=== PATIENT | male | born 1955 | race Caucasian/White ===

== ENCOUNTER 2017-10-12 11:39 | Emergency (ER) | payer MEDICAID ==
[2017-10-12 12:33] VITALS: BP 140/80
--- NOTE | 2017-10-12 13:13 | UC ---
Shoulder Pain HPI - HPI Summary HPI Summary: 62 yo male states he had the acute onset of left shoulder /scapular and arm pain that started this AM The pain woke him up The pain is rated as 10/10 HE DENIES CP/SOB/N or V/DIAPHORESIS the pain is no changed by position or movement He states he is allergic to ASA He took tramadol without relief - History of Current Complaint Chief Complaint: UCUpperExtremity Stated Complaint: SHOULDER AND BACK PAIN Time Seen by Provider: 10/12/17 12:30 Hx Obtained From: Patient Onset/Duration: Sudden Onset, Lasting Hours Timing: Constant Severity Initially: Severe Severity Currently: Severe Pain Intensity: 10 Pain Scale Used: 0-10 Numeric Character: Unable to Describe Aggravating Factor(s): Nothing Alleviating Factor(s): Nothing Associated Signs And Symptoms: Positive: Negative Related History: Dominant Hand Right - Allergies/Home Medications Allergies/Adverse Reactions: Allergies Allergy/AdvReac Type Severity Reaction Status Date / Time aspirin Allergy See Comment Verified 10/12/17 12:09 PMH/Surg Hx/FS Hx/Imm Hx Previously Healthy: Yes Cardiovascular History: Other Other Cardiovascular History: states he had Rheumatic heart disease as a child Psychological History: Other Other Psychological History: he has been admitted for acute ychosis i Other History Of: Negative For: Anticoagulant Therapy - Surgical History Surgical History: Yes Surgery Procedure, Year, and Place: eye surgery - Family History Known Family History: Positive: Hypertension - Social History Alcohol Use: Daily Alcohol Amount: beer Substance Use Type: None Smoking Status (MU): Light Every Day Tobacco Smoker Amount Used/How Often: 1/2 PPD Household Exposure Type: Cigarettes - Immunization History Most Recent Influenza Vaccination: unknown Most Recent Tetanus Shot: unknown Most Recent Pneumonia Vaccination: unknown Review of Systems Constitutional: Negative Skin: Negative Eyes: Negative ENT: Negative Respiratory: Negative Cardiovascular: Negative Gastrointestinal: Negative Genitourinary: Negative Motor: Negative Neurovascular: Negative Musculoskeletal: Other: - left shoulder /scapular and elbow pain Neurological: Negative Psychological: Negative Is Patient Immunocompromised?: No All Other Systems Reviewed And Are Negative: Yes Physical Exam Triage Information Reviewed: Yes Appearance: Thin Vital Signs: Initial Vital Signs Temp 96.7 F 10/12/17 12:03 Pulse 74 10/12/17 12:03 Resp 16 10/12/17 12:03 BP 147/92 10/12/17 12:03 Pulse Ox 100 10/12/17 12:03 Eyes: Positive: Conjunctiva Clear ENT: Negative: Nasal congestion, Nasal drainage, Trismus, Muffled voice, Hoarse voice Dental Exam: Other - poor dentition Neck: Positive: Supple Respiratory: Positive: Lungs clear, Normal breath sounds, No respiratory distress, No accessory muscle use Cardiovascular: Positive: RRR, No Murmur Abdomen Description: Positive: Nontender. Negative: Bruit, CVA Tenderness (R), CVA Tenderness (L) Musculoskeletal: Positive: ROM Intact, No Edema, Other: - both shoulder and elbow are not tender Neurological Exam: Normal Neurological: Positive: Alert Psychological Exam: Normal Skin Exam: Normal Diagnostics - EKG Cardiac Rate: NL Cardiac Rhythm: Sinus: Normal Ectopy: None ST Segment: Normal - no significant ST elevations/compared with old EKG Shoulder Course/Dx - Course Course Of Treatment: beause he has full ROM of shoulder and elbow and has no tenderness to palpatio I explained to him I has hesitant to call this musculosketal pain. I stated that the most prudent thing to do would be to send him to the ER. I told him we could give him IV morphine and send him by EMS. He refuses stating he will go by POV (frientd driving). He is aware that his terrazas could be due a serious cause (ie referred cardiac pain). - Differential Dx/Diagnosis Provider Diagnoses: left arm pain of uncertain cause Discharge - Sign-Out/Discharge Documenting (check all that apply): Discharge/Admit/Transfer - Discharge Plan Condition: Guarded Disposition: TRANS HIGHER LVL OF CARE FAC Referrals: Josesito Leroy MD [Primary Care Provider] - Additional Instructions: I am unsure of the cause of your left arm pain I suggest you go to the ER for evaluation to make sure it is not referred chest pain from your heart We are happy to start and IV here and give you pain meds and send you to the ER by ambulance should you desire This would be more prudent than going by car - Billing Disposition and Condition Condition: GUARDED Disposition: EMTALA
== END 2017-10-12 12:47 | disposition short-term general hospital (02) ==
LOC: UCEAST 11:39
DX: Z88.6 Allergy status to analgesic agent (principal); F17.210 Nicotine dependence, cigarettes, uncomplicated
CPT/HCPCS: 93005; 99212; G0463

== ENCOUNTER 2017-10-12 13:21 | Emergency (ER) | payer MEDICAID ==
[2017-10-12] MEDS ORDERED: Acetaminophen TAB* 325 MG PO ONE (13:56)
[2017-10-12] MEDS ORDERED: Ketorolac INJ* 60 MG/2 ML VIAL IM ONE (13:59)
[2017-10-12 14:18] LABS: ABS Basophils 0 10^3/ul (0-0.2); ABS Eosinophils 0 10^3/ul (0-0.6); ABS Monocytes 0.7 10^3/ul (0-0.8); ABS Neutrophils 3.4 10^3/ul (1.5-7.7); ABS Nucleated RBC 0 10^3/ul; Hematocrit 44 % (42-52); Hemoglobin 14.7 g/dl (14.0-18.0); Lymphocyte % 18.3 % (25-47); Mean Corpuscular HGB Conc 34 g/dl (31-36); Mean Corpuscular Hemoglobin 32 pg (27-31); Mean Corpuscular Volume 94 fL (80-94); Mean Platelet Volume 8.3 um3 (7.4-10.4); Nucleated Red Blood Cells % 0; Platelet Count 219 10^3/ul (150-450); Red Blood Count 4.65 10^6/ul (4.0-5.4); Red Cell Distribution Width 14 % (10.5-15); White Blood Count 5.2 10^3/ul (3.5-10.8)
[2017-10-12 14:31] LABS: EGFR Non-African American 86.1 (>60)
--- NOTE | 2017-10-12 14:34 | RAD ---
INDICATION: Chest pain COMPARISON: June 21, 2015 TECHNIQUE: An AP portable view obtained at 1417 hours is submitted. FINDINGS: Bones/Soft Tissues: There are no acute bony findings. Cardiomediastinal: The cardiomediastinal silhouette is normal. Lungs: There are no infiltrates. Pleura: There are no pleural effusions. Other: None IMPRESSION: NO ACTIVE DISEASE
[2017-10-12 15:06] VITALS: BP 145/86
--- NOTE | 2017-10-12 19:00 | ED ---
Natanael Hurst Stephanie, scribed for Joni Rea MD on 10/12/17 at 1404 . Upper Extremity Pain - HPI Summary HPI Summary: The pt is a 62 y/o M presenting to the ED with c/o L UE pain that began this morning after awaking. The pt reports he was sleeping on his L UE and when he woke up he had L UE pain. He denies CP and SOB. - History of Current Complaint Chief Complaint: EDExtremityUpper Stated Complaint: LT ARM PAIN Time Seen by Provider: 10/12/17 13:44 Hx Obtained From: Patient Mechanism Of Injury: Other - sleeping on L UE Onset/Duration: Started Hours Ago, Still Present Timing: Constant Severity Currently: Mild Pain Location: Arm - L Aggravating Factor(s): Other - position Alleviating Factor(s): Nothing Associated Signs & Symptoms: Negative: Chest Pain, SOB - Allergies/Home Medications Allergies/Adverse Reactions: Allergies Allergy/AdvReac Type Severity Reaction Status Date / Time aspirin Allergy See Comment Verified 10/12/17 13:43 Home Medications: Home Medications Metoprolol Tartrate TAB* [Lopressor TAB*] 50 mg PO BID 10/12/17 [History Confirmed 10/12/17] PMH/Surg Hx/FS Hx/Imm Hx Endocrine/Hematology History: Denies: Hx Anticoagulant Therapy, Hx Blood Disorders, Hx Blood Transfusions, Hx Bone Marrow Disease, Hx Diabetes, Hx Systemic Lupus Erythematosus, Hx Sickle Cell Disease, Hx Thyroid Disease, Hx Anemia, Hx Unexplained Bleeding, Other Endocrine/Hematological Disorders Cardiovascular History: Reports: Hx Hypertension Denies: Hx Aneurysm, Hx Angina, Hx Angioplasty, Hx Atrial Fibrillation, Hx Auto Implanted Cardiovert Defib, Hx Cardiac Arrest, Hx Cardiomegaly, Hx Congenital Heart Disease, Hx Congestive Heart Failure, Hx Coronary Artery Disease, Hx Deep Vein Thrombosis, Hx Embolism, Hx Hypercholesterolemia, Hx Hypotension, Hx Myocardial Infarction, Hx Pacemaker/ICD, Hx Peripheral Vascular Disease, Hx Rheumatic Fever, Hx Syncope, Hx Valvular Heart Disease, Other Cardiovascular Problems/Disorders Respiratory History: Denies: Hx Asthma, Hx Bronchopulmonary Dysplasia, Hx Chronic Bronchitis, Hx Chronic Obstructive Pulmonary Disease (COPD), Hx Cystic Fibrosis, Hx Lung Cancer , Hx Pleural Effusion, Hx Pneumonia, Hx Pulmonary Edema, Hx Pulmonary Embolism, Hx Seasonal Allergies, Hx Sleep Apnea, Other Respiratory Problems/Disorders GI History: Reports: Other GI Disorders - Constipaiton per ER nurse report Denies: Hx Cirrhosis, Hx Crohn's Disease, Hx Diverticulosis, Hx Gall Bladder Disease, Hx Gastroesophageal Reflux Disease, Hx Gastrointestinal Bleed, Hx Hiatal Hernia, Hx Irritable Bowel, Hx Jaundice, Hx Obstructive Bowel, Hx Ileostomy, Hx Pyloric Stenosis, Hx Ulcer, Hx Urosepsis History: Denies: Hx Acute Renal Failure, Hx Benign Prostatic Hyperplasia, Hx Chronic Renal Failure, Hx Dialysis, Hx Kidney Infection, Hx Kidney Stones, Hx Renal Disease, Other Problems/Disorders Musculoskeletal History: Reports: Other Musculoskeletal History - chronic pain Sensory History: Denies: Hx Cataracts, Hx Contacts or Glasses, Hx Eye Injury, Hx Eye Prosthesis, Hx Glaucoma, Hx Legally Blind, Hx Macular Degeneration, Hx Vision Problem, Hx Deafness, Hx Hearing Aid, Hx Hearing Problem, Other Sensory Impairments Opthamlomology History: Denies: Hx Cataracts, Hx Contacts or Glasses, Hx Eye Injury, Hx Eye Prosthesis, Hx Glaucoma, Hx Legally Blind, Hx Macular Degeneration, Hx Vision Problem, Other Sensory Impairments Neurological History: Reports: Hx Seizures - pt noted to have seizure in ED Denies: Hx CVA, Hx Dementia, Hx Developmental Delay, Hx Headaches, Hx Migraine, Hx Nerve Disease, Hx Peripheral Neuropathy, Hx Spinal Cord Injury, Hx Transient Ischemic Attacks (TIA), Other Neuro Impairments/Disorders Psychiatric History: Reports: Hx Anxiety, Hx Depression, Other Psychiatric Issues/Disorders - mood disorder Denies: Hx Eating Disorder, Hx of Violent Episodes Against Others - Surgical History Surgery Procedure, Year, and Place: eye surgery Infectious Disease History: No Infectious Disease History: Denies: Traveled Outside the [place] in Last 30 Days - Family History Known Family History: Negative: Renal Disease - Social History Occupation: Unemployed Lives: Dormitory/Roommates Alcohol Use: Daily Alcohol Amount: beer Hx Substance Use: No Substance Use Type: Reports: None Hx Tobacco Use: Yes Smoking Status (MU): Light Every Day Tobacco Smoker Amount Used/How Often: 1/2 PPD Review of Systems Negative: Fever Negative: Chest Pain Negative: Shortness Of Breath Positive: Other - L UE pain Negative: Slurred Speech All Other Systems Reviewed And Are Negative: Yes Physical Exam - Summary Physical Exam Summary: VITAL SIGNS: Reviewed. GENERAL: Patient is a well-developed and nourished MALE who is lying comfortable in the stretcher. Patient is not in any acute respiratory distress. HEAD AND FACE: No signs of trauma. No ecchymosis, hematomas or skull depressions. No sinus tenderness. EYES: PERRLA, EOMI x 2, No injected conjunctiva, no nystagmus. EARS: Hearing grossly intact. Ear canals and tympanic membranes are within normal limits. MOUTH: Oropharynx within normal limits. NECK: Supple, trachea is midline, no adenopathy, no JVD, no carotid bruit, no c- spine tenderness, neck with full ROM. CHEST: Symmetric, no tenderness at palpation LUNGS: Clear to auscultation bilaterally. No wheezing or crackles. CVS: Regular rate and rhythm, S1 and S2 present, no murmurs or gallops appreciated. ABDOMEN: Soft, non-tender. No signs of distention. No rebound no guarding, and no masses palpated. Bowel sounds are normal. EXTREMITIES: FROM in all major joints, no edema, no cyanosis or clubbing. NEURO: Alert and oriented x 3. No acute neurological deficits. Speech is normal and follows commands. SKIN: Dry and warm Triage Information Reviewed: Yes Vital Signs On Initial Exam: Initial Vitals Temp Pulse Resp BP Pulse Ox 97.6 F 66 18 149/103 98 10/12/17 13:37 10/12/17 13:37 10/12/17 13:37 10/12/17 13:37 10/12/17 13:37 Vital Signs Reviewed: Yes Diagnostics - Vital Signs Vital Signs Temp Pulse Resp BP Pulse Ox 10/12/17 13:37 97.6 F 66 18 149/103 98 - Laboratory Lab Results: Lab Results 10/12/17 10/12/17 Range/Units 14:03 14:03 WBC 5.2 (3.5-10.8) 10^3/ul RBC 4.65 (4.0-5.4) 10^6/ul Hgb 14.7 (14.0-18.0) g/dl Hct 44 (42-52) % MCV 94 (80-94) fL MCH 32 H (27-31) pg MCHC 34 (31-36) g/dl RDW 14 (10.5-15) % Plt Count 219 (150-450) 10^3/ul MPV 8.3 (7.4-10.4) um3 Neut % (Auto) 65.5 (38-83) % Lymph % (Auto) 18.3 L (25-47) % Candler % (Auto) 14.3 H (0-7) % Eos % (Auto) 1.0 (0-6) % Baso % (Auto) 0.9 (0-2) % Absolute Neuts (auto) 3.4 (1.5-7.7) 10^3/ul Absolute Lymphs (auto) 1.0 (1.0-4.8) 10^3/ul Absolute Monos (auto) 0.7 (0-0.8) 10^3/ul Absolute Eos (auto) 0 (0-0.6) 10^3/ul Absolute Basos (auto) 0 (0-0.2) 10^3/ul Absolute Nucleated RBC 0 10^3/ul Nucleated RBC % 0 Sodium 136 L (139-145) mmol/L Potassium Pending Chloride 104 (101-111) mmol/L Carbon Dioxide 25 (22-32) mmol/L Anion Gap Pending BUN 11 (6-24) mg/dL Creatinine 0.90 (0.67-1.17) mg/dL Est GFR ( Amer) 110.7 (>60) Est GFR (Non-Af Amer) 86.1 (>60) BUN/Creatinine Ratio 12.2 (8-20) Glucose 101 H (70-100) mg/dL Calcium 8.9 (8.6-10.3) mg/dL Total Bilirubin 0.60 (0.2-1.0) mg/dL AST Pending ALT 57 H (7-52) U/L Alkaline Phosphatase 52 (34-104) U/L Total Creatine Kinase 89 (10-223) U/L CK-MB (CK-2) 1.8 (0.6-6.3) ng/mL Troponin I 0.00 (<0.04) ng/mL Total Protein 7.3 (6.4-8.9) g/dL Albumin 4.3 (3.2-5.2) g/dL Globulin 3.0 (2-4) g/dL Albumin/Globulin Ratio 1.4 (1-3) Result Diagrams: 10/12/17 14:03 10/12/17 14:03 Lab Statement: Any lab studies that have been ordered have been reviewed, and results considered in the medical decision making process. - Radiology CXR Xray Interpretation: No Acute Changes Radiology Interpretation Completed By: Radiologist - NO ACTIVE DISEASE. ED physician has reviewed this report. - EKG 14:07 Cardiac Rate: NL EKG Rhythm: Sinus Rhythm - [address] Segment: Normal Ectopy: None EKG Interpretation: No ST elevations, Normal axis EKG Comparison: No Significant Change - Similar to 06/21/15 Course/Dx - Course Assessment/Plan: This patient is a 62-year-old male who presents to the emergency department with a chief complaint of having left arm pain. The patient was seen in the urgent care and they decided to send the patient for a cardiac workup. Patient reports that he is left frontoparietal left upper extremity last night and when he woke up he developed the pain. He denies any chest pain, shortness of breath or palpitations. EKG is a normal sinus rhythm without any ST elevations. EKG is similar to a previous EKG done in the emergency department. Blood test results without any significant abnormality except for sodium of 136 and AST of 57. Troponin is 0.00 and CK-MB is 1.8. Chest x-ray impression: No active disease. During my physical exam I believe that the patient has an elbow tendinitis. Patient was given Toradol for the pain and his symptoms have improved. Therefore I do not believe that the patient has an acute coronary syndrome. Also the left upper extremity exam has good pulses and good capillary refill. The patient is neurovascularly intact. There is no rashes to think that the patient has cellulitis or shingles. I discussed all the findings and test results with the patient. Patient was instructed to return to the emergency room immediately if any of the symptoms return or worsens. Plan of care was discussed with the patient and understands and agrees. All questions were answered at patient satisfaction. There were no further complaints or concerns. Lung exam before discharge: CTA B/L. Good air exchange. No wheezing or crackles heard. CVS: S1 and S2 present. No murmurs appreciated. Patient is alert and oriented x 3. Patient is hemodynamically stable. Patient will be discharged home with follow up PCP in the next 2-3 days - Diagnoses Provider Diagnoses: Left elbow tendinitis, Left upper limb pain Discharge - Sign-Out/Discharge Documenting (check all that apply): Discharge/Admit/Transfer - Discharge - Discharge Plan Condition: Stable Disposition: HOME Prescriptions: Naproxen [Naproxen 500 mg tab] 500 mg PO BID #20 tablet Patient Education Materials: Tendinitis (ED) Referrals: Josesito Leroy MD [Primary Care Provider] - 3 Days Additional Instructions: Return to the ED for new or worsening symptoms. The documentation as recorded by the Natanael jackson Stephanie accurately reflects the service I personally performed and the decisions made by Álvaro dalal Walter, MD.
== END 2017-10-12 15:05 | disposition home or self-care (01) ==
LOC: ED 13:21
DX: M77.9 Enthesopathy, unspecified (principal); M79.602 Pain in left arm; F17.200 Nicotine dependence, unspecified, uncomplicated; Z88.6 Allergy status to analgesic agent
CPT/HCPCS: 36415; 71045; 80053; 82550; 82553; 84484; 85025; 93005; 96372; 99282; J1885

== ENCOUNTER 2019-05-29 14:40 | Emergency (ER) | payer OTHER ==
[2019-05-29] MEDS ORDERED: Labetalol IV* 5 MG/ML 20 ML VIAL IV PUSH ONE (15:17)
--- NOTE | 2019-05-29 15:19 | ED ---
Hypertension - HPI Summary HPI Summary: This pt is a 63 Y/O M presenting to [facility] accompanied by his with a CC of HTN that has been present since 05/26/2019 without any relief. He states that he started new blood pressure medications in April and has been taking them every day. He states that he has been feeling weird and lightheaded since the onset. He also states tingling and numbness in his extremities. He states that he has pain bilaterally in his lower extremities. He denies any recent fever, chills, N/V, and headaches. He states that he has no aggravating or alleviating factors. He has a PMHx of HTN and rheumatic fever. He states that he has a SHx of smoking cigarettes and states that he has a beer once a night. - History of Current Complaint Chief Complaint: EDHypertension Stated Complaint: HIGH BLOOD PRESSURE Time Seen by Provider: 05/29/19 15:01 Hx Obtained From: Patient Onset/Duration: Started Days Ago - 3, Still Present Timing: Constant Aggravating Factor(s): Nothing Alleviating Factor(s): Nothing Associated Signs & Symptoms: Negative - headaches, fevers, chills, N/V, Numbness , Tingling - Allergies/Home Medications Allergies/Adverse Reactions: Allergies Allergy/AdvReac Type Severity Reaction Status Date / Time aspirin Allergy See Comment Verified 05/29/19 14:58 PMH/Surg Hx/FS Hx/Imm Hx Previously Healthy: Yes Endocrine/Hematology History: Denies: Hx Anticoagulant Therapy, Hx Blood Disorders, Hx Blood Transfusions, Hx Bone Marrow Disease, Hx Diabetes, Hx Systemic Lupus Erythematosus, Hx Sickle Cell Disease, Hx Thyroid Disease, Hx Anemia, Hx Unexplained Bleeding, Other Endocrine/Hematological Disorders Cardiovascular History: Reports: Hx Hypertension Denies: Hx Aneurysm, Hx Angina, Hx Angioplasty, Hx Atrial Fibrillation, Hx Auto Implanted Cardiovert Defib, Hx Cardiac Arrest, Hx Cardiomegaly, Hx Congenital Heart Disease, Hx Congestive Heart Failure, Hx Coronary Artery Disease, Hx Deep Vein Thrombosis, Hx Embolism, Hx Hypercholesterolemia, Hx Hypotension, Hx Myocardial Infarction, Hx Pacemaker/ICD, Hx Peripheral Vascular Disease, Hx Rheumatic Fever, Hx Syncope, Hx Valvular Heart Disease, Other Cardiovascular Problems/Disorders Respiratory History: Denies: Hx Asthma, Hx Bronchopulmonary Dysplasia, Hx Chronic Bronchitis, Hx Chronic Obstructive Pulmonary Disease (COPD), Hx Cystic Fibrosis, Hx Lung Cancer , Hx Pleural Effusion, Hx Pneumonia, Hx Pulmonary Edema, Hx Pulmonary Embolism, Hx Seasonal Allergies, Hx Sleep Apnea, Other Respiratory Problems/Disorders GI History: Reports: Other GI Disorders - Constipaiton per ER nurse report Denies: Hx Cirrhosis, Hx Crohn's Disease, Hx Diverticulosis, Hx Gall Bladder Disease, Hx Gastroesophageal Reflux Disease, Hx Gastrointestinal Bleed, Hx Hiatal Hernia, Hx Irritable Bowel, Hx Jaundice, Hx Obstructive Bowel, Hx Ileostomy, Hx Pyloric Stenosis, Hx Ulcer, Hx Urosepsis History: Denies: Hx Acute Renal Failure, Hx Benign Prostatic Hyperplasia, Hx Chronic Renal Failure, Hx Dialysis, Hx Kidney Infection, Hx Kidney Stones, Hx Renal Disease, Other Problems/Disorders Musculoskeletal History: Reports: Other Musculoskeletal History - chronic pain Sensory History: Denies: Hx Cataracts, Hx Contacts or Glasses, Hx Eye Injury, Hx Eye Prosthesis, Hx Glaucoma, Hx Legally Blind, Hx Macular Degeneration, Hx Vision Problem, Hx Deafness, Hx Hearing Aid, Hx Hearing Problem, Other Sensory Impairments Opthamlomology History: Denies: Hx Cataracts, Hx Contacts or Glasses, Hx Eye Injury, Hx Eye Prosthesis, Hx Glaucoma, Hx Legally Blind, Hx Macular Degeneration, Hx Vision Problem, Other Sensory Impairments Neurological History: Reports: Hx Seizures - pt noted to have seizure in ED Denies: Hx CVA, Hx Dementia, Hx Developmental Delay, Hx Headaches, Hx Migraine, Hx Nerve Disease, Hx Peripheral Neuropathy, Hx Spinal Cord Injury, Hx Transient Ischemic Attacks (TIA), Other Neuro Impairments/Disorders Psychiatric History: Reports: Hx Anxiety, Hx Depression, Other Psychiatric Issues/Disorders - mood disorder Denies: Hx Eating Disorder, Hx of Violent Episodes Against Others - Cancer History Hx Chemotherapy: No Hx Radiation Therapy: No - Surgical History Surgical History: Yes Surgery Procedure, Year, and Place: eye surgery - Immunization History Immunizations Up to Date: Yes Infectious Disease History: No Infectious Disease History: Denies: Traveled Outside the [place] in Last 30 Days - Family History Known Family History: Positive: Hypertension Negative: Renal Disease - Social History Occupation: Retired Lives: With Family Alcohol Use: Daily Alcohol Amount: beer Hx Substance Use: No Substance Use Type: Reports: None Hx Tobacco Use: Yes Smoking Status (MU): Light Every Day Tobacco Smoker Amount Used/How Often: 1/2 PPD Review of Systems Positive: Other - lightheaded . Negative: Fever, Chills Positive: Other - Hypertensive Negative: Vomiting, Nausea Neurological: Other - Tingling in extremities Positive: Numbness - in lowr extremities . Negative: Headache All Other Systems Reviewed And Are Negative: Yes Physical Exam - Summary Physical Exam Summary: VITAL SIGNS: Reviewed. GENERAL: Patient is a well-developed and nourished male who is lying comfortable in the stretcher. Patient is not in any acute respiratory distress. HEAD AND FACE: No signs of trauma. No ecchymosis, hematomas or skull depressions. No sinus tenderness. EYES: PERRLA, EOMI x 2, No injected conjunctiva, no nystagmus. EARS: Hearing grossly intact. Ear canals and tympanic membranes are within normal limits. MOUTH: Oropharynx within normal limits. NECK: Supple, trachea is midline, no adenopathy, no JVD, no carotid bruit, no c- spine tenderness, neck with full ROM. CHEST: Symmetric, no tenderness at palpation LUNGS: Clear to auscultation bilaterally. No wheezing or crackles. CVS: Regular rate and rhythm, S1 and S2 present, no murmurs or gallops appreciated. ABDOMEN: Soft, non-tender. No signs of distention. No rebound no guarding, and no masses palpated. Bowel sounds are normal. EXTREMITIES: FROM in all major joints, no edema, no cyanosis or clubbing. NEURO: Alert and oriented x 3. No acute neurological deficits. Speech is normal and follows commands. SKIN: Dry and warm Triage Information Reviewed: Yes Vital Signs On Initial Exam: Initial Vitals Temp Pulse Resp BP Pulse Ox 97.8 F 79 16 162/101 97 05/29/19 14:49 05/29/19 14:49 05/29/19 14:49 05/29/19 14:49 05/29/19 14:49 Vital Signs Reviewed: Yes Procedures - Sedation Patient Received Moderate/Deep Sedation with Procedure: No Diagnostics - Vital Signs Vital Signs Temp Pulse Resp BP Pulse Ox 05/29/19 14:49 97.8 F 79 16 162/101 97 - Laboratory Result Diagrams: 05/29/19 15:25 05/29/19 15:25 Lab Statement: Any lab studies that have been ordered have been reviewed, and results considered in the medical decision making process. - Radiology CXR Radiology Interpretation Completed By: Radiologist Summary of Radiographic Findings: Stigmata of probable obstructive lung disease. No acute pulmonary or cardiac process evident. ED physician has reviewed this report. - CT Brain CT CT Interpretation Completed By: Radiologist Summary of CT Findings: No acute intracranial process evident. Moderately severe involutional change with interval worsening. ED physician has reviewed this report. - EKG 1522 Cardiac Rate: NL - 86 BPM EKG Rhythm: Sinus Rhythm ST Segment: Normal Ectopy: None Summary of EKG Findings: An EKG at 1522 reveals NSR at 86 BPM, nml axis, nml intervals. No STEMI. No acute changes. Interpreted by Dr. Rea at 05/29/2019 1524 Re-Evaluation - Re-Evaluation First Eval Re-Evaluation Time: 17:17 Change: Unchanged Comment: Upon discharge the stated that the pt has not been taking his medication as regulalrly as he had previously stated. Hypertension Course/Dx - Course Assessment/Plan: This pt is a 63 Y/O M presenting to [facility] accompanied by his with a CC of HTN that has been present since 05/26/2019 without any relief. He states that he started new blood pressure medications in April and has been taking them every day. He states that he has been feeling weird and lightheaded since the onset. He also states tingling and numbness in his extremities. He states that he has pain bilaterally in his lower extremities. He denies any recent fever, chills, N/V, and headaches. He states that he has no aggravating or alleviating factors. He has a PMHx of HTN and rheumatic fever. He states that he has a SHx of smoking cigarettes and states that he has a beer once a night. Blood work without any significant abnormality. EKG shows a normal sinus rhythm without any significant rashes. Chest x-ray impression: for stigmata for obstructive lung disease. No acute pulmonary or cardiac process. Head CT impression: No acute intracranial process evident. In the ED course the patient was given 1 dose of labetalol and the blood pressure is 149/81. Patient is asymptomatic. Patients reports that he is not coherent to his blood pressure medications. I discussed all the findings and test results with the patient. Patient was instructed to return to the emergency room immediately if any of the symptoms return worsens. Plan of care was discussed with the patient and understands and agrees. All questions were answered at patient satisfaction. There were no further complaints or concerns. Lung exam before discharge: CTA B/L. Good air exchange. No wheezing or crackles heard. CVS: S1 and S2 present. No murmurs appreciated. Patient is alert and oriented x 3. Patient is hemodynamically stable. Patient will be discharged home with follow up PCP in the next 2-3 days - Diagnoses Differential Diagnosis/HQI PQRI: Drug Withdrawal, Hypertension, Hypertensive Crisis, Hypertensive Urgency Provider Diagnoses: Hypertension, uncontrolled Discharge ED - Sign-Out/Discharge Documenting (check all that apply): Patient Departure - discharge - Discharge Plan Condition: Stable Disposition: HOME Patient Education Materials: Chronic Hypertension (ED) Referrals: Josesito Leroy MD [Primary Care Provider] - 2 Days Additional Instructions: PLEASE RETURN TO THE ED IMMEDIATELY FOR WORSENING OR CONCERNING SYMPTOMS AND FOLLOW UP WITH YOUR PRIMARY CARE PHYSICIAN IN 1-3 DAYS. - Billing Disposition and Condition Condition: STABLE Disposition: Home - Attestation Statements Document Initiated by Sidibe: Yes Documenting Scribe: Semaj Lee Provider For Whom Em is Documenting (Include Credential): Joni Rea MD Scribe Attestation: Semaj Hurst, scribed for Joni Rea MD on 05/29/19 at 1811. Scribe Documentation Reviewed: Yes Provider Attestation: The documentation as recorded by the Semaj jackson accurately reflects the service I personally performed and the decisions made by , Joni Rea MD Status of Scribe Document: Viewed
--- OUTSIDE RECORDS SUMMARY | 2019-05-29 15:19 | XMS REPORT | Continuity of Care Document ---
:1955 External Reference #:[id number] Author Name Bear Salomon, OD Address [address] [place] [address] Problems Active Problems Provider Date Open angle with borderline findings Bear Owens O.D. Onset: 05/01/2015 Regular astigmatism Bear Owens O.D. Onset: 05/01/2015 Hypermetropia Bear Owens O.D. 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 Onset: 05/01/2015 Lens Replaced By Other Means Bear Owens O.D. Onset: 05/10/2014 Tear film insufficiency Bear Owens O.D. Onset: 05/10/2014 Epiretinal membrane Bear Owens O.D. Onset: 05/10/2014 Presbyopia Bear Owens O.D. Onset: 05/10/2014 Borderline glaucoma Bear Owens O.D. Onset: 05/10/2014 Social History Type Date Description Comments Sex Unknown ETOH Use Occasionally consumes beer Tobacco Use Start: Unknown Light tobacco smoker (10 or fewer cigarettes/day) Smoking Status Reviewed: 04/02/19 Light tobacco smoker (10 or fewer cigarettes/day) Allergies, Adverse Reactions, Alerts Active Allergies Reaction Severity Comments Date Aspirin 05/10/2014 Seasonal 05/10/2014 Medications Active Medications SIG Qnty Indications Ordering Provider Date Artificial Tears one drop three 15ml Bear Salomon, OD 04/22/2017 1.4% times a day Solution both eyes Metronidazole Josesito Leroy MD 0.75% Cream Atenolol Josesito Leroy MD 50mg Tablets Tramadol HCL Midura MD, Josesito T. 50mg Tablets Immunizations Description No Information Available Vital Signs Date Vital Result Comment 04/02/2019 8:43am Intraocular Pressure Right Eye 15 mmHg Intraocular Pressure Left Eye 15 mmHg 04/22/2017 8:56am Intraocular Pressure Right Eye 14 mmHg Intraocular Pressure Left Eye 14 mmHg Results Description No Information Available Procedures Date Code Description Status 04/02/2019 31312 Fundus Photography W/Interpretation & Report Completed 04/02/2019 22080 Refraction Completed 04/02/2019 63273 Eye Exam Est Comprehensive Completed Medical Devices Description No Information Available Encounters Description No Information Available Assessments Date Code Description Provider 04/02/2019 Z96.1 Presence of intraocular lens Bear Salomon, OD 04/02/2019 H43.813 Vitreous degeneration, bilateral Bear Salomon, OD 04/02/2019 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, bilateral Bear Salomon, OD 04/02/2019 H35.89 Other specified retinal disorders Bear Salomon, OD 04/02/2019 H52.4 Presbyopia Bear Salomon, OD 04/02/2019 H40.013 Open angle with borderline findings, low risk, Bear Salomon, OD bilateral Plan of Treatment 04/02/2019 - Bear Salomon, ODZ96.1 Presence of intraocular lensH43.813 Vitreous degeneration, [id number] Puckering of macula, tvcvgvqneB32.89 Other specified retinal uqayoccgpH94.4 JibtpergemS40.013 Open angle with borderline findings, low risk, bilateralFollow up:yearly full, sooner PRN Functional Status Description No Information Available Mental Status Description No Information Available Referrals Description No Information Available
[2019-05-29 15:32] LABS: ABS Eosinophils 0.1 10^3/ul (0-0.6); ABS Lymphocytes 0.8 10^3/ul (1.0-4.8); ABS Monocytes 0.5 10^3/ul (0-0.8); ABS Neutrophils 2.9 10^3/ul (1.5-7.7); Eosinophil % 1.3 %; Hematocrit 42 % (42-52); Mean Corpuscular HGB Conc 34 g/dL (31-36); Mean Corpuscular Hemoglobin 32 pg (27-31); Mean Corpuscular Volume 94 fL (80-94); Platelet Count 228 10^3/uL (150-450); Red Blood Count 4.44 10^6 /uL (4.18-5.48); Red Cell Distribution Width 14 % (10-15); White Blood Count 4.3 10^3/uL (3.5-10.8)
[2019-05-29 15:49] LABS: ALT 16 U/L (7-52); AST 27 U/L (13-39); Albumin 4.4 g/dL (3.2-5.2); Albumin/Globulin Ratio 1.6 (1-3); Alkaline Phosphatase 46 U/L (34-104); Anion Gap 10 mmol/L (2-11); BUN/Creatinine Ratio 11.5 (8-20); Blood Urea Nitrogen 10 mg/dL (6-24); C Reactive Protein < 1.00 mg/L (<8.01); CO2 Carbon Dioxide 24 mmol/L (22-32); Calcium 9.1 mg/dL (8.6-10.3); Chloride 101 mmol/L (101-111); Creatine Kinase 84 U/L (10-223); EGFR African American 107.9 (>60); EGFR Non-African American 89.2 (>60); Globulin 2.7 g/dL (2-4); Glucose 87 mg/dL (70-100); Magnesium 2.1 mg/dL (1.9-2.7); Potassium 4.1 mmol/L (3.5-5.0); Sodium 135 mmol/L (135-145); Total Protein 7.1 g/dL (6.4-8.9)
[2019-05-29 16:12] LABS: Alcohol < 10 mg/dL (<10)
[2019-05-29 16:27] LABS: TSH (Thyroid Stimulating Horm) 1.29 mcIU/mL (0.34-5.60)
[2019-05-29 17:42] VITALS: BP 141/87
== END 2019-05-29 17:43 | disposition home or self-care (01) ==
LOC: ED 14:40
DX: I10 Essential (primary) hypertension (principal); F17.210 Nicotine dependence, cigarettes, uncomplicated; F41.9 Anxiety disorder, unspecified; F32.9 Major depressive disorder, single episode, unspecified; Z79.899 Other long term (current) drug therapy; Z88.8 Allergy status to other drugs, medicaments and biological substances
CPT/HCPCS: 36415; 70450; 71046; 80053; 80320; 82550; 83605; 83735; 83880; 84443; 84484; 85025; 86140; 93005; 96374; 99283; G0480

== ENCOUNTER 2024-02-16 12:11 | Inpatient (IN) ==
[2024-02-16 13:21] LABS: INR 0.98 (0.85-1.14)
[2024-02-16 13:22] LABS: Albumin 4.3 g/dL (3.2-5.2); Albumin/Globulin Ratio 1.5 (1-3); Calcium 9.5 mg/dL (8.6-10.3); Creatinine, Serum 1.12 mg/dL (0.67-1.17); Globulin 2.9 g/dL (2-4); Potassium 4.6 mmol/L (3.5-5.0); Total Bilirubin 0.5 mg/dL (0.2-1.0); Total Protein 7.2 g/dL (6.4-8.9); eGFR CKD-EPI 72.5 (>60)
[2024-02-16 13:51] LABS: ABS Eosinophils 0.2 10^3/uL (0.0-0.5); ABS Lymphocytes 0.9 10^3/uL (1.0-4.8); ABS Monocytes 0.5 10^3/uL (0.0-1.1); ABS Neutrophils 4.1 10^3/uL (1.5-7.6); ABS Nucleated RBC 0.01 10^3/ul; Eosinophil % 3.9 %; Hematocrit 46.7 % (38-53); Hemoglobin 15.4 g/dL (13.2-16.3); Lymphocyte % 15.5 %; Mean Corpuscular Volume 93.9 fL (80-97); Mean Platelet Volume 8.1 fL (7.5-11.2); Nucleated Red Blood Cells % 0.1 %/100WBC (0.0-0.8); Platelet Count 261 10^3/uL (150-450); Red Blood Count 4.98 10^6/uL (4.06-5.63); Red Cell Distribution Width 13.9 % (12-17); White Blood Count 5.8 10^3/uL (3.6-10.2)
[2024-02-16 14:13] LABS: High Sensitivity Troponin 1 Hr 172 pg/mL (<20)
[2024-02-16] MEDS: Iodixanol (CONTRAST) 320 MG/ML 100 ML SDV IV ONE (15:34)
[2024-02-16] MEDS: Heparin 5000 UNITS/ML 1 mL VIAL IV SCH (16:54)
[2024-02-16] MEDS: Heparin DRIP 25,000 UNITS BAG 25,000 UNITS/250 ML BAG IV SCH (16:59)
[2024-02-16] MEDS: Multivitamins/Minerals TAB PO SCH (18:20)
[2024-02-16] MEDS: Thiamine 100 MG/ML 2 ml VIAL (200 mg) IM ONE (18:22)
[2024-02-16 19:19] LABS: Amylase 51 U/L (29-103); Lipase 75 U/L (11.0-82.0)
[2024-02-16] MEDS ORDERED: Sulfur Hexaflouride MICROSPHR 25 MG VIAL IV PRN (21:13)
[2024-02-16] MEDS: Pantoprazole VIAL 40 MG VIAL IV SCH (21:37)
[2024-02-16] MEDS ORDERED: Enoxaparin 40 MG/0.4 ML SYR SUBCUT SCH (22:00)
[2024-02-16 22:18] LABS: High Sensitivity Troponin 3 Hr 899 pg/mL (<20)
[2024-02-17 03:38] LABS: High Sensitivity Troponin 3 Hr 339 pg/mL (<20)
[2024-02-17 06:05] LABS: ABS Eosinophils 0.3 10^3/uL (0.0-0.5); ABS Lymphocytes 1.4 10^3/uL (1.0-4.8); ABS Monocytes 0.9 10^3/uL (0.0-1.1); ABS Neutrophils 6.7 10^3/uL (1.5-7.6); ABS Nucleated RBC 0.01 10^3/ul; Eosinophil % 2.8 %; Hematocrit 51.5 % (38-53); Hemoglobin 17.1 g/dL (13.2-16.3); Mean Corpuscular Hemoglobin 31.3 pg (27-33); Mean Corpuscular Hgb Conc 33.3 g/dL (31-36); Mean Corpuscular Volume 94.2 fL (80-97); Mean Platelet Volume 7.9 fL (7.5-11.2); Nucleated Red Blood Cells % 0.1 %/100WBC (0.0-0.8); Platelet Count 220 10^3/uL (150-450); Red Blood Count 5.47 10^6/uL (4.06-5.63); Red Cell Distribution Width 13.7 % (12-17); White Blood Count 9.3 10^3/uL (3.6-10.2)
[2024-02-17 06:49] LABS: Calcium 9.8 mg/dL (8.6-10.3); Creatinine, Serum 0.89 mg/dL (0.67-1.17); Magnesium 2.3 mg/dL (1.9-2.7); Phosphorus 3.2 mg/dL (2.5-5.0); Potassium 4.6 mmol/L (3.5-5.0); eGFR CKD-EPI 94.5 (>60)
[2024-02-17 15:37] LABS: HDL Cholesterol 74.9 mg/dL
[2024-02-17] MEDS: [UNRECOGNIZED DRUG - OTHER] BOTH EYES SCH (18:33)
[2024-02-18] MEDS: Aspirin EC 81 mg TAB.EC (enteric coated) PO SCH (10:30)
[2024-02-18] MEDS: Enoxaparin 40 MG/0.4 ML SYR SUBCUT SCH (18:45)
[2024-02-20] MEDS ORDERED: Lorazepam PYXIS KEY PRN (04:41)
[2024-02-20] MEDS: LORazepam 2 mg VIAL 1 ml IV PUSH ONE (04:56)
[2024-02-20 07:08] LABS: ABS Eosinophils 0.3 10^3/uL (0.0-0.5); ABS Lymphocytes 1.4 10^3/uL (1.0-4.8); ABS Monocytes 1.2 10^3/uL (0.0-1.1); ABS Neutrophils 5.5 10^3/uL (1.5-7.6); ABS Nucleated RBC 0.01 10^3/ul; Eosinophil % 3.6 %; Hematocrit 49.1 % (38-53); Hemoglobin 16.2 g/dL (13.2-16.3); Mean Corpuscular Hemoglobin 31.2 pg (27-33); Mean Corpuscular Volume 94.6 fL (80-97); Mean Platelet Volume 8.4 fL (7.5-11.2); Nucleated Red Blood Cells % 0.1 %/100WBC (0.0-0.8); Platelet Count 232 10^3/uL (150-450); Red Blood Count 5.19 10^6/uL (4.06-5.63); Red Cell Distribution Width 13.8 % (12-17); White Blood Count 8.5 10^3/uL (3.6-10.2)
[2024-02-20 13:32] LABS: Potassium, Whole Blood 4.8 mmol/L (3.4-4.5)
[2024-02-20 13:39] LABS: Blood Urea Nitrogen 14 mg/dL (6-24); CO2 Carbon Dioxide 22 mmol/L (22-32); Calcium 9.5 mg/dL (8.6-10.3); Chloride 98 mmol/L (101-111); Creatinine, Serum 1.14 mg/dL (0.67-1.17); Glucose 118 mg/dL (70-100); Sodium 131 mmol/L (135-145); eGFR CKD-EPI 70.9 (>60)
[2024-02-20 13:40] LABS: Anion Gap 11 mmol/L (2-16)
[2024-02-20 16:17] LABS: Calcium 10.2 mg/dL (8.6-10.3); Creatinine, Serum 1.1 mg/dL (0.67-1.17); Potassium 4.2 mmol/L (3.5-5.0)
[2024-02-20] MEDS: Haloperidol 5 mg/ml SDV IV/IM 5 MG/ML AMP IV SLOW PU PRN (16:18)
[2024-02-22] MEDS: COVID VAC 24-25 (12+) (Moderna) Syringe 0.5 mL IM ONE (08:02)
[2024-02-22] MEDS ORDERED: Lorazepam PYXIS KEY PRN (08:58)
[2024-02-22] MEDS: LORazepam 2 mg VIAL 1 ml IV PUSH PRN (12:57)
[2024-02-22] MEDS: Haloperidol 5 mg/ml SDV IV/IM 5 MG/ML AMP IV SLOW PU PRN (14:31)
[2024-02-23 06:35] LABS: ABS Eosinophils 0.3 10^3/uL (0.0-0.5); ABS Lymphocytes 1.6 10^3/uL (1.0-4.8); ABS Monocytes 1.2 10^3/uL (0.0-1.1); ABS Neutrophils 4.3 10^3/uL (1.5-7.6); ABS Nucleated RBC 0.01 10^3/ul; Eosinophil % 4.2 %; Hematocrit 49.4 % (38-53); Hemoglobin 16.1 g/dL (13.2-16.3); Mean Corpuscular Hemoglobin 31.3 pg (27-33); Mean Corpuscular Hgb Conc 32.7 g/dL (31-36); Mean Corpuscular Volume 95.7 fL (80-97); Mean Platelet Volume 8.7 fL (7.5-11.2); Nucleated Red Blood Cells % 0.1 %/100WBC (0.0-0.8); Platelet Count 210 10^3/uL (150-450); Red Blood Count 5.17 10^6/uL (4.06-5.63); Red Cell Distribution Width 13.9 % (12-17); White Blood Count 7.5 10^3/uL (3.6-10.2)
[2024-02-23 08:53] LABS: Calcium 9.6 mg/dL (8.6-10.3); Creatinine, Serum 1.06 mg/dL (0.67-1.17); Potassium 4.1 mmol/L (3.5-5.0); eGFR CKD-EPI 77.4 (>60)
[2024-02-23] MEDS ORDERED: Aminophylline 25 MG/ML VIAL ONE (12:39)
[2024-02-23] MEDS ORDERED: Regadenoson 0.4 MG/5 ML SYRINGE ONE (12:39)
[2024-02-24 14:17] VITALS: BP 159/88
== END 2024-02-24 16:32 | disposition home health service (06) | DRG 280 ==
LOC: ED 12:11 → EDHOLD 12:11 → MEDTELE 02-17 01:56 → SUATTDRO 02-18 12:00
PROVIDERS: ADMIT Student in an Organized Health Care Education/Training Program; ATTEND Internal Medicine